=== PATIENT | male | born 1960 | race Caucasian/White ===

== ENCOUNTER 2023-12-15 20:45 | Inpatient (IN) ==
[2023-12-15] MEDS ORDERED: DEXTROSE 31 GM ORAL.SUSP PO PRN (21:08)
[2023-12-15] MEDS ORDERED: DEXTROSE 50% 50 ML VIAL IV PRN (21:08)
[2023-12-15] MEDS ORDERED: ACETAMINOPHEN 325 MG TABLET PO PRN (21:08)
[2023-12-15] MEDS ORDERED: MAGNESIUM SULFATE 2 GM/50 ML BAG IV PRN (21:08)
[2023-12-15] MEDS ORDERED: morphine 4 MG/ML VIAL IV PRN (21:08)
[2023-12-15] MEDS ORDERED: IPRATROPIUM/ALBUTEROL 3 ML AMPUL.NEB NEB PRN (21:08)
[2023-12-15] MEDS ORDERED: METOCLOPRAMIDE 10 MG/2 ML VIAL IV PRN (21:08)
[2023-12-15] MEDS ORDERED: POTASSIUM CHLORIDE 40 MEQ in DEXTROSE 5% IN WATER 500 ML IV PRN (21:08)
[2023-12-15] MEDS ORDERED: POTASSIUM CHLORIDE 20 MEQ TABLET PO PRN ×2 (21:08)
[2023-12-15] MEDS ORDERED: POLYETHYLENE GLYCOL 3350 17 GM PACKET PO PRN (21:08)
[2023-12-15] MEDS ORDERED: ONDANSETRON 4 MG/2 ML VIAL IV PRN (21:08)
[2023-12-15] MEDS ORDERED: VANCOMYCIN PER PHARMACY IV SCH (21:15)
[2023-12-15] MEDS: 0.9 % SODIUM CHLORIDE 1,000 ML IV SCH (23:37)
[2023-12-15] MEDS: cefTRIAXone 1 GM VIAL ONE (23:38)
[2023-12-15] MEDS: 0.9 % SODIUM CHLORIDE 10 ML SYRINGE IV SCH (23:39)
[2023-12-15] MEDS: cefTRIAXone 2 GM in DEXTROSE 5% IN WATER 50 ML IV SCH (23:40)
[2023-12-15] MEDS: cefTRIAXone 1 GM VIAL IV SCH (23:40)
[2023-12-16] MEDS: VANCOMYCIN 1,500 MG in DEXTROSE 5% IN WATER 500 ML IV SCH (00:53)
[2023-12-16 05:53] LABS: Basophils # (Auto) 0.02 K/mcL (0.00-0.30); Basophils % (Auto) 0.2 % (0.0-2.0); Eosinophils # (Auto) 0.03 K/mcL (0.00-0.70); Eosinophils % (Auto) 0.3 % (0.0-7.0); Hemoglobin 12.4 g/dL (13.7-17.5); Lymphocytes # (Auto) 0.61 K/mcL (1.50-4.80); Lymphocytes % (Auto) 5.2 % (15.5-49.0); Mean Corpuscular HGB Conc 34.4 g/dL (31.0-36.0); Mean Platelet Volume 9.3 fL (8.8-12.5); Monocytes # (Auto) 0.71 K/mcL (0.10-0.90); Neutrophils % (Auto) 87.8 % (38.0-78.0); Platelet Count 291 K/mcL (140-440); RBC 4.09 M/mcL (4.63-6.08); Red Cell Distribution Width 12.4 % (11.5-14.5); WBC 11.7 K/mcL (4.5-11.0)
[2023-12-16 06:39] LABS: ALT/SGPT 15 U/L (<40); AST/SGOT 23 U/L (<40); Albumin 2.8 gm/dL (3.2-5.2); Albumin/Globulin Ratio 0.8 (1.0-2.3); Alkaline Phosphatase 74 U/L (39-117); Bilirubin,Direct 0.3 mg/dL (<0.3); Bilirubin,Total 0.6 mg/dL (0.1-1.0); Blood Urea Nitrogen 21 mg/dL (8-23); Calcium 8.3 mg/dL (8.6-10.4); Carbon Dioxide 22 mmol/L (22-30); Chloride 94 mmol/L (96-108); Globulin 3.5 gm/dL (2.2-3.7); Glomerular Filtration Rate 107; Glucose 233 mg/dL (70-105); Lactate Dehydrogenase 125 U/L (135-225); Phosphorous 2.1 mg/dL (2.5-4.5); Potassium 3.9 mmol/L (3.3-5.1); Sodium 129 mmol/L (133-145); Triglycerides 169 mg/dL (<150); Uric Acid 2.8 mg/dL (2.5-8.0)
[2023-12-16] MEDS: INSULIN LISPRO 1 UNIT/0.01 ML UNIT SQ SCH (07:16)
[2023-12-16] MEDS ORDERED: IPRATROPIUM/ALBUTEROL 3 ML AMPUL.NEB NEB PRN ×2 (08:00→13:41)
[2023-12-16] MEDS ORDERED: SCOPOLAMINE 1 PATCH PATCH TOPICAL PRN (08:00)
[2023-12-16] MEDS: PARoxetine 20 MG TABLET PO SCH (09:11)
[2023-12-16] MEDS: OMEPRAZOLE 20 MG CAPSULE PO SCH (09:11)
[2023-12-16] MEDS: LISINOPRIL 20 MG TABLET PO SCH (09:11)
[2023-12-16] MEDS: DOCUSATE SODIUM 100 MG CAPSULE PO SCH (09:14)
[2023-12-16] MEDS: HEPARIN 5,000 UNIT/ML VIAL SQ SCH (09:14)
[2023-12-16] MEDS: SODIUM CHLORIDE 154 MEQ in WATER FOR INJECTION,STERILE 961.5 ML IV ONE (11:31)
[2023-12-16] MEDS ORDERED: KETAMINE 50 MG/ML Syringe IV ONE (12:10)
[2023-12-16] MEDS ORDERED: MIDAZOLAM 2 MG/2 ML VIAL ONE (12:11)
[2023-12-16] MEDS ORDERED: ONDANSETRON 4 MG/2 ML VIAL ONE ×2 (12:11)
[2023-12-16] MEDS ORDERED: LIDOCAINE 2% PF 5 ML VIAL ONE ×2 (12:11)
[2023-12-16] MEDS ORDERED: METOCLOPRAMIDE 10 MG/2 ML VIAL ONE (12:11)
[2023-12-16] MEDS ORDERED: DEXAMETHASONE 10 MG/ML VIAL ONE ×2 (12:11)
[2023-12-16] MEDS ORDERED: GLYCOPYRROLATE 0.2 MG/ML VIAL IV ONE ×2 (12:11)
[2023-12-16] MEDS ORDERED: PHENYLephrine 1 MG/10 ML SYRINGE (ANEST) ONE (12:11)
[2023-12-16] MEDS ORDERED: FAMOTIDINE/PF 20 MG/2 ML VIAL IV ONE (12:12)
[2023-12-16] MEDS ORDERED: HYDROmorphone 0.5 MG/0.5 ML SYRINGE ONE (13:01)
[2023-12-16] MEDS ORDERED: fentaNYL 100 MCG/2 ML VIAL ONE (13:33)
[2023-12-16] MEDS ORDERED: fentaNYL 100 MCG/2 ML VIAL IV PRN (13:41)
[2023-12-16] MEDS ORDERED: HYDROmorphone 0.5 MG/0.5 ML SYRINGE IV PRN (13:41)
[2023-12-16] MEDS ORDERED: NALOXONE HCL 0.4 MG/ML VIAL IV PRN (13:41)
[2023-12-16] MEDS ORDERED: ONDANSETRON 4 MG/2 ML VIAL IV PRN (13:41)
[2023-12-16] MEDS: LACTATED RINGERS 1,000 ML IV SCH (15:51)
[2023-12-17 05:58] LABS: Basophils # (Auto) 0.01 K/mcL (0.00-0.30); Basophils % (Auto) 0.1 % (0.0-2.0); Eosinophils # (Auto) 0 K/mcL (0.00-0.70); Eosinophils % (Auto) 0 % (0.0-7.0); Hemoglobin 12.3 g/dL (13.7-17.5); Lymphocytes # (Auto) 0.38 K/mcL (1.50-4.80); Lymphocytes % (Auto) 2.9 % (15.5-49.0); Mean Cell Volume 89.8 fL (80.0-100.0); Mean Corpuscular HGB Conc 34.2 g/dL (31.0-36.0); Mean Platelet Volume 9.4 fL (8.8-12.5); Monocytes # (Auto) 0.52 K/mcL (0.10-0.90); Monocytes % (Auto) 3.9 % (1.0-12.0); Neutrophils % (Auto) 92.6 % (38.0-78.0); Platelet Count 339 K/mcL (140-440); RBC 4.01 M/mcL (4.63-6.08); Red Cell Distribution Width 12.5 % (11.5-14.5); WBC 13.2 K/mcL (4.5-11.0)
[2023-12-17 06:30] LABS: ALT/SGPT 19 U/L (<40); AST/SGOT 24 U/L (<40); Albumin 2.7 gm/dL (3.2-5.2); Albumin/Globulin Ratio 0.7 (1.0-2.3); Alkaline Phosphatase 82 U/L (39-117); Bilirubin,Direct 0.3 mg/dL (<0.3); Bilirubin,Total 0.5 mg/dL (0.1-1.0); Blood Urea Nitrogen 24 mg/dL (8-23); Calcium 9.1 mg/dL (8.6-10.4); Carbon Dioxide 23 mmol/L (22-30); Chloride 96 mmol/L (96-108); Globulin 3.9 gm/dL (2.2-3.7); Glomerular Filtration Rate 95; Glucose 347 mg/dL (70-105); Lactate Dehydrogenase 150 U/L (135-225); Phosphorous 3.1 mg/dL (2.5-4.5); Potassium 4.6 mmol/L (3.3-5.1); Sodium 130 mmol/L (133-145); Triglycerides 153 mg/dL (<150); Uric Acid 3.3 mg/dL (2.5-8.0)
[2023-12-17] MEDS: glipiZIDE 5 MG TABLET PO SCH (08:55)
[2023-12-17] MEDS: SENNOSIDES 1 TABLET PO PRN (21:10)
[2023-12-18 06:12] LABS: Basophils # (Auto) 0.02 K/mcL (0.00-0.30); Basophils % (Auto) 0.2 % (0.0-2.0); Eosinophils # (Auto) 0.01 K/mcL (0.00-0.70); Eosinophils % (Auto) 0.1 % (0.0-7.0); Hemoglobin 11.9 g/dL (13.7-17.5); Lymphocytes % (Auto) 8.6 % (15.5-49.0); Mean Cell Volume 88.2 fL (80.0-100.0); Mean Platelet Volume 9.3 fL (8.8-12.5); Monocytes # (Auto) 0.45 K/mcL (0.10-0.90); Monocytes % (Auto) 4.8 % (1.0-12.0); Neutrophils % (Auto) 85.3 % (38.0-78.0); Platelet Count 360 K/mcL (140-440); RBC 3.97 M/mcL (4.63-6.08); Red Cell Distribution Width 12.5 % (11.5-14.5); WBC 9.3 K/mcL (4.5-11.0)
[2023-12-18 06:53] LABS: ALT/SGPT 17 U/L (<40); AST/SGOT 21 U/L (<40); Albumin 2.6 gm/dL (3.2-5.2); Albumin/Globulin Ratio 0.7 (1.0-2.3); Alkaline Phosphatase 87 U/L (39-117); Bilirubin,Direct 0.2 mg/dL (<0.3); Bilirubin,Total 0.5 mg/dL (0.1-1.0); Blood Urea Nitrogen 30 mg/dL (8-23); Calcium 8.9 mg/dL (8.6-10.4); Carbon Dioxide 25 mmol/L (22-30); Chloride 94 mmol/L (96-108); Globulin 3.8 gm/dL (2.2-3.7); Glomerular Filtration Rate 107; Glucose 203 mg/dL (70-105); Lactate Dehydrogenase 154 U/L (135-225); Phosphorous 2.8 mg/dL (2.5-4.5); Potassium 3.9 mmol/L (3.3-5.1); Sodium 131 mmol/L (133-145); Triglycerides 210 mg/dL (<150); Uric Acid 3.1 mg/dL (2.5-8.0)
[2023-12-18] MEDS: INSULIN GLARGINE, HUMAN 1 UNIT/0.01 ML SQ SCH (08:26)
[2023-12-18 08:42] LABS: Hemoglobin A1C 8.6 % Hgb (4.0-6.0)
[2023-12-18] MEDS: HYDROcodone/APAP 5/325MG TABLET PO PRN (08:42)
[2023-12-18] MEDS: ENALAPRILAT 1.25 MG/ML VIAL IV PRN (16:52)
[2023-12-19 07:31] LABS: Blood Urea Nitrogen 16 mg/dL (8-23); Calcium 9.3 mg/dL (8.6-10.4); Carbon Dioxide 25 mmol/L (22-30); Chloride 92 mmol/L (96-108); Glomerular Filtration Rate 101; Glucose 240 mg/dL (70-105); Sodium 127 mmol/L (133-145)
[2023-12-19] MEDS ORDERED: 0.9 % SODIUM CHLORIDE 10 ML SYRINGE IV PRN (10:05)
[2023-12-19] MEDS: ceFAZolin 1 GM VIAL IV SCH (11:47)
[2023-12-19] MEDS ORDERED: 0.9 % SODIUM CHLORIDE 10 ML SYRINGE IV SCH (21:00)
== END 2023-12-19 15:48 | disposition home or self-care (01) | DRG 486 ==
LOC: MEDSUR 22:40
PROVIDERS: ADMIT Internal Medicine; ATTEND Internal Medicine
PROC: SCOKNEE (2023-12-16 12:50)